=== PATIENT | female | born 1945 | race Caucasian/White ===

== ENCOUNTER 2016-04-16 10:07 | Outpatient (CLI) ==
--- NOTE | 2016-04-16 11:03 | CT ---
EXAM: CT chest without contrast HISTORY: Weight loss and chronic cough COMPARISON: Chest x-ray 06/30/2015 TECHNIQUE: Serial axial images of the chest were obtained from the lung apices to the upper abdomen without contrast. These were viewed in multiple planes. FINDINGS: The thyroid is normal. The visualized vessels are unremarkable without aneurysm or steno sis. The heart is normal in size without pericardial effusion. There are no pathologically enlarge d mediastinal or hilar lymph nodes. Normal calcified left hilar lymph node is present. There is no pneumothorax or pleural effusion. There is a 0.2 cm ground-glass nodule in the right lo wer lobe on image 44. There is an additional 0.3 cm ground-glass nodule on image 40 in the right lo wer lobe. There is no additional consolidation or nodule identified. The airways are patent. Limited views of the soft tissues in the upper abdomen demonstrate low attenuation 1.3 cm lesion in the posterior of the mid right renal pole measuring 10 HU. There is a small hiatal hernia. The oss eous structures are unremarkable. IMPRESSION: 1. Small ground-glass nodules in the right lower lobe are likely postinflammatory. 2. No acute consolidation or additional cardiopulmonary process. 3. Low attenuation lesion in the right kidney most consistent with a renal cyst.
--- NOTE | 2016-04-16 11:15 | CT ---
EXAM: CT examination of the abdomen pelvis without intravenous or oral contrast. Axial, sagittal, a nd coronal imaging. Comparison: None available. Reason for study: Weight loss, abdominal pain, and chronic cough. FINDINGS: Examination is somewhat limited by lack of intravenous and oral contrast. Within the visualized structures of the thorax. There is no pneumothorax, pleural effusion, or foca l consolidation. The heart is not enlarged. There is hyperdense material is seen within the left he art. There atherosclerotic disease is seen in the aorta and distal arterial vasculature. There is a 2 mm ground-glass nodule in the posterior right lower lobe best seen on lung windows axial image 6 . Please see the CT examination of the chest performed on the same day for further information conc erning the thorax. The liver, spleen, adrenal glands, pancreas, and gallbladder are unremarkable. There is a 1.5 cm superior pole right renal cyst (HU=11). Otherwise, both kidneys are unremarkable. Diverticular disease is seen throughout the rectosigmoid and descending colon. The appendix is nor mal in size and caliber without periappendiceal inflammatory change. There is a small fat containin g periumbilical hernia. There is degenerative disease seen within the thoracic and lumbosacral spine with vacuum disc phenom enon and anterior osteophytosis. There is sacralization of the fifth lumbar vertebrae with a grade 1 anterolisthesis of L4 on L5 and 2 mm of retrolithesis of L1 on L2. IMPRESSION: 1. 2 mm ground-glass nodule in the right lower lobe. Please see CT examination of the chest perfor med on the same day for further information. 2. Right renal cyst. 3. Diverticulosis. 4. Degenerative disease of the lumbosacral spine as described. 5. Atherosclerotic disease and senescent change.
== END 2016-04-16 10:08 | disposition home or self-care (01) ==
LOC: RAD 10:07
PROVIDERS: ATTEND Internal Medicine
DX: R10.9 Unspecified abdominal pain (principal); R05 Cough; R63.4 Abnormal weight loss

== ENCOUNTER 2016-05-13 10:11 | Outpatient (CLI) ==
[2016-05-13 13:08] LABS: BASOPHILS % (AUTO) 0.6 % (0.0-3.0); EOSINOPHILS % (AUTO) 0.6 % (0.0-7.0); HEMATOCRIT 39.1 % (37.0-47.0); HEMOGLOBIN 13.1 g/dl (12.0-16.0); IMMATURE GRANULOCYTE % (AUTO) 0.8 % (0.0-5.0); LYMPHOCYTES % (AUTO) 20.8 (10.0-50.0); MEAN CORPUSCULAR HEMOGLOBIN 29.6 pg (27.0-31.0); MEAN CORPUSCULAR HGB CONC 33.5 (31.8-35.4); MEAN CORPUSCULAR VOLUME 88.3 fl (81.0-99.0); MONOCYTES # (AUTO) 0.4 K/uL (0.4-2.0); MONOCYTES % (AUTO) 9.3 (0-10); NEUTROPHILS # (AUTO) 3.2 K/ul (2.0-6.9); NEUTROPHILS % (AUTO) 67.9; PLATELET COUNT 202 10^3/uL (140-440); RED BLOOD COUNT 4.43 10^6/ul (4.20-5.40); WHITE BLOOD COUNT 4.72 K/ul (4.6-10.2)
[2016-05-13 13:53] LABS: ALBUMIN 3.5 g/dL (3.4-5.0); ALBUMIN/GLOBULIN RATIO 1.09; ANION GAP 15.3; BILIRUBIN,TOTAL 0.64 mg/dL (0.00-1.20); BUN/CREATININE RATIO 9.09; CHOL/HDL RATIO 4.8 (4.5-5.5); CREATININE 0.77 mg/dL (0.60-1.30); POTASSIUM 3.3 mmol/L (3.5-5.10); TOTAL PROTEIN 6.7 g/dL (5.8-8.1)
== END 2016-05-13 10:12 | disposition home or self-care (01) ==
LOC: LAB 10:11
PROVIDERS: ATTEND General Practice
DX: E86.0 Dehydration (principal); R11.10 Vomiting, unspecified; Z79.899 Other long term (current) drug therapy
CPT/HCPCS: 36415; 80053; 80061; 82150; 83690; 85025

== ENCOUNTER 2016-06-09 11:25 | Outpatient (CLI) ==
[2016-06-09 12:42] LABS: BILIRUBIN,URINE Negative (NEGATIVE); KETONES,URINE Negative (NEGATIVE); LEUKOCYTE ESTERASE ,URINE Trace (NEGATIVE); NITRITE,URINE Negative (NEGATIVE); PROTEIN,URINE Negative (NEGATIVE); URINE, BLOOD Negative (NEGATIVE)
[2016-06-09 12:45] LABS: ADD URINE MICROSCOPIC YES
[2016-06-09 12:46] LABS: BACTERIA,URINE TRACE (NOT PRESENT)
== END 2016-06-09 11:26 | disposition home or self-care (01) ==
LOC: LAB 11:25
PROVIDERS: ATTEND General Practice
DX: R30.0 Dysuria (principal)
CPT/HCPCS: 81001

== ENCOUNTER 2016-06-30 10:45 | Outpatient (CLI) ==
[2016-06-30 11:26] LABS: BILIRUBIN,URINE Negative (NEGATIVE); KETONES,URINE Negative (NEGATIVE); LEUKOCYTE ESTERASE ,URINE 2+ (NEGATIVE); NITRITE,URINE Negative (NEGATIVE); PH,URINE 5.5 (5-9); PROTEIN,URINE Negative (NEGATIVE); URINE, BLOOD 2+ (NEGATIVE)
[2016-06-30 11:28] LABS: ADD URINE MICROSCOPIC YES
[2016-06-30 11:29] LABS: BACTERIA,URINE TRACE (NOT PRESENT)
== END 2016-06-30 10:46 | disposition home or self-care (01) ==
LOC: LAB 10:45
PROVIDERS: ATTEND General Practice
DX: R35.0 Frequency of micturition (principal)
CPT/HCPCS: 81001; 87086; 87186

== ENCOUNTER 2016-08-18 11:41 | Outpatient (CLI) ==
[2016-08-18 13:56] LABS: BASOPHILS % (AUTO) 0.5 % (0.0-3.0); EOSINOPHILS # (AUTO) 0.1 K/ul (0.0-0.7); EOSINOPHILS % (AUTO) 2.2 % (0.0-7.0); HEMATOCRIT 40.3 % (37.0-47.0); HEMOGLOBIN 13.4 g/dl (12.0-16.0); IMMATURE GRANULOCYTE % (AUTO) 0.5 % (0.0-5.0); LYMPHOCYTES # (AUTO) 1.8 K/uL (0.60-3.4); LYMPHOCYTES % (AUTO) 28.1 (10.0-50.0); MEAN CORPUSCULAR HEMOGLOBIN 29.1 pg (27.0-31.0); MEAN CORPUSCULAR HGB CONC 33.3 (31.8-35.4); MEAN CORPUSCULAR VOLUME 87.4 fl (81.0-99.0); MONOCYTES # (AUTO) 0.3 K/uL (0.4-2.0); MONOCYTES % (AUTO) 5.4 (0-10); NEUTROPHILS % (AUTO) 63.3; PLATELET COUNT 237 10^3/uL (140-440); RED BLOOD COUNT 4.61 10^6/ul (4.20-5.40); WHITE BLOOD COUNT 6.26 K/ul (4.6-10.2)
[2016-08-18 14:22] LABS: ALBUMIN 4.2 g/dL (3.4-5.0); ALBUMIN/GLOBULIN RATIO 1.31; ANION GAP 14.6; BILIRUBIN,TOTAL 0.59 mg/dL (0.00-1.20); BUN/CREATININE RATIO 26.43; CALCIUM 9.3 mg/dL (8.2-10.2); CREATININE 0.87 mg/dL (0.60-1.30); POTASSIUM 3.6 mmol/L (3.5-5.10); TOTAL PROTEIN 7.4 g/dL (5.8-8.1)
== END 2016-08-18 11:42 | disposition home or self-care (01) ==
LOC: LAB 11:41
PROVIDERS: ATTEND General Practice
DX: R11.0 Nausea (principal); R63.4 Abnormal weight loss; E11.9 Type 2 diabetes mellitus without complications
CPT/HCPCS: 36415; 80053; 83036; 85025

== ENCOUNTER 2016-08-20 13:04 | Outpatient (CLI) | payer OTHER ==
--- NOTE | 2016-08-20 14:39 | CT ---
EXAM: CT ABDOMEN AND PELVIS HISTORY: Weight loss, nausea. TECHNIQUE: CT abdomen and pelvis with and without intravenous contrast. Oral contrast was administ ered. Images were reconstructed using 5 mm section thickness. Reformations were prepared. 100 ml V isipaque 320 FINDINGS: Comparison is to 04/16/2016. Moderate fatty infiltration of the liver. Inhomogeneous enhancement of the spleen likely related to relative arterial phase technique of the exam. Gallbladder, pancreas and adrenal glands within nor mal limits. A few small renal cortical cysts are suggested. No hydronephrosis. There is mild athe rosclerotic disease of the aorta. Unremarkable stomach and appendix. Nonobstructive bowel gas pattern. There is mild sigmoid divertic ulosis. Uterus and urinary bladder are within normal limits. No ascites or obvious inflammatory in filtration of the abdominal fat. No abdominal wall hernia. There is severe degenerative disc disease of the spine and severe arthrop athy of the sacroiliac joints. Lung bases are free of infiltrate. No pneumoperitoneum. IMPRESSION: 1. Moderate fatty infiltration of the liver. 2. A few renal cortical cysts. 3. Mild atherosclerotic disease. 4. Mild sigmoid diverticulosis. 5. Severe degenerative changes of the spine and sacroiliac joints.
--- NOTE | 2016-08-20 15:32 | CT ---
EXAM: CT THORAX HISTORY: Weight loss, nausea. TECHNIQUE: CT thorax with and without intravenous contrast. 5-mm axial sections. Coronal and sagit meng re-formations. 100 ml Visipaque 320 COMPARISON: 04/16/2016 FINDINGS: Normal heart size. No pericardial effusion. Mild aortic atherosclerosis. A few small nonspecific mediastinal lymph nodes. Lungs are clear. No consolidations, vascular congestion, pleural fluid or pneumothorax. No suspici ous pulmonary nodules or opacities. Bones reveal moderate degenerative changes of the spine. IMPRESSION: 1. Lungs are clear. No suspicious pulmonary opacities or nodules. 2. Mediastinum within normal limits. A few nonspecific sub-centimeter lymph nodes are seen in this region.
== END 2016-08-20 13:05 | disposition home or self-care (01) ==
LOC: RAD 13:04
PROVIDERS: ATTEND Internal Medicine
DX: R63.4 Abnormal weight loss (principal); R11.0 Nausea; E11.9 Type 2 diabetes mellitus without complications; R10.9 Unspecified abdominal pain

== ENCOUNTER 2016-09-17 09:21 | Outpatient (CLI) | payer OTHER ==
--- NOTE | 2016-09-17 16:36 | NM ---
EXAM: Gastric emptying study HISTORY: Nausea COMPARISON: None of this type. PROCEDURE: The patient was administered 2.1 mCi of 99m technetium sulfur colloid mixed with 4 ounces of egg beaters, two pieces of toast with jelly and 6 ounces of water as a solid phase meal. Imagin g of the stomach was performed at one hour intervals for 3 hours in anterior and posterior projectio ns simultaneously. Subsequently time activity curves were calculated using anterior, posterior and geometric mean data. The gastric emptying half-time was determined. FINDINGS:The examination demonstrates a normal appearance of activity within the stomach. Sequentia l images demonstrate transit of activity from the stomach into the small bowel. The examination demo nstrates 46% emptying at 1 hour, 84% emptying at 2 hours and 96% emptying at 3 hours The gastric emp tying half-time is approximately 1 hour 10 minutes. IMPRESSION: 1.The gastric emptying half-time is approximately 1 hour 10 minutes (within normal limits). 2.Images of the activity in the stomach and small bowel are within normal limits.
== END 2016-09-17 09:22 | disposition home or self-care (01) ==
LOC: RAD 09:21
PROVIDERS: ATTEND General Practice
DX: R11.2 Nausea with vomiting, unspecified (principal); R63.4 Abnormal weight loss; R06.6 Hiccough

== ENCOUNTER 2017-03-07 12:18 | Outpatient (CLI) ==
--- NOTE | 2017-03-07 13:19 | DI ---
EXAM: Two views of the chest. History: Cough. Comparison: Chest radiograph 06/30/2015 Findings: Heart size is normal. No focal consolidation. No appreciable pleural fluid and no pneumo thorax. No acute osseous abnormalities. Calcified granulomas seen within the mediastinum. Mitral v alve calcifications. No acute osseous abnormalities. Scoliosis again noted. Impression: No acute cardiopulmonary process which
== END 2017-03-07 12:19 | disposition home or self-care (01) ==
LOC: RAD 12:18
PROVIDERS: ATTEND Internal Medicine
DX: R05 Cough (principal)

== ENCOUNTER 2017-03-12 12:36 | Outpatient (CLI) ==
--- NOTE | 2017-03-12 13:10 | CT ---
EXAM: CT head without contrast HISTORY: Ataxia and forgetfulness COMPARISON: CT head 06/23/2010 TECHNIQUE: Serial axial images of the brain were obtained from the skull base to the vertex without IV contrast. FINDINGS: The ventricles, cisterns and sulci are unchanged. The ventricles are prominent. The peck-w brooklynn matter junction is maintained. No midline shift or mass is identified. There is no abnormal in tra or extra-axial fluid collection. The paranasal sinuses demonstrate mild mucosal thickening. The mastoid air cells are clear. The osseous calvarium is intact. IMPRESSION: 1. No acute intracranial abnormality or hemorrhage. If further evaluation is clinically indicated, MRI may be obtained. 2. There is mild generalized volume loss and persistent prominence of the ventricles not significant ly changed since 2010. Temporal horns are not enlarged. 3. Mild paranasal sinus mucosal thickening.
== END 2017-03-12 12:37 | disposition home or self-care (01) ==
LOC: RAD 12:36
PROVIDERS: ATTEND Internal Medicine
DX: R27.0 Ataxia, unspecified (principal); R41.3 Other amnesia

== ENCOUNTER 2017-05-26 12:42 | Outpatient (CLI) ==
--- NOTE | 2017-05-26 13:19 | DI ---
EXAM: Chest two view, frontal and lateral views. HISTORY: Cough. COMPARISON: 03/07/2017, 10/24/2014, 03/05/2012. FINDINGS: The heart size is normal. There is no pulmonary vascular congestion. The lungs are clear save for calcified granulomatous changes. No pleural effusion or pneumothorax is seen. No acute os seous abnormality identified. Degenerative changes present in the spine and shoulders. Right convex curvature centered in the lower thoracic spine noted. Since the prior study, there has been no signi ficant interval change. IMPRESSION: No acute cardiopulmonary process.
== END 2017-05-26 12:43 | disposition home or self-care (01) ==
LOC: FCC-LAB 12:42
PROVIDERS: ATTEND General Practice
DX: R05 Cough (principal)
CPT/HCPCS: 87070

== ENCOUNTER 2017-06-02 15:21 | Outpatient (CLI) | END 2017-06-02 15:22 | disposition home or self-care (01) | LOC: FCC-LAB 15:21 | PROVIDERS: ATTEND General Practice | DX: E11.9 Type 2 diabetes mellitus without complications (principal); I10 Essential (primary) hypertension; R63.4 Abnormal weight loss; Z79.899 Other long term (current) drug therapy | CPT/HCPCS: 36415; 80053; 80061; 81001; 83036; 84443; 85025 ==

== ENCOUNTER 2017-06-24 10:01 | Outpatient (CLI) ==
--- NOTE | 2017-06-24 11:41 | CT ---
EXAM: CT abdomen pelvis with and without contrast HISTORY: Abnormal weight loss COMPARISON: 08/20/2016 TECHNIQUE: CT abdomen pelvis performed with and without intravenous contrast. Coronal and sagittal reformatted images obtained. FINDINGS: Lung bases clear. No free air. No acute abnormalities of the bones. Degenerative change s in the sacroiliac joints with partial fusion. Degenerative changes in the spine. Heart normal in size. Small focal fatty infiltration near the falciform ligament. Liver otherwise unremarkable. Ga llbladder unremarkable. Pancreas unremarkable. Granulomatous calcification in the spleen. Spleen o therwise unremarkable. Adrenals unremarkable. Small bilateral renal cysts. No hydronephrosis or ne phrolithiasis. Aorta normal in caliber. Mild to moderate atherosclerosis. Bladder unremarkable. U terus unremarkable. No lymphadenopathy or ascites. Small hiatal hernia with wall thickening gastroes ophageal junction region. No dilated loops small bowel. Appendix appears normal. Colonic diverticu losis. Minimal fat-containing umbilical hernia. IMPRESSION: 1. Small hiatal hernia with associated wall thickening near the gastroesophageal junction. Recommen d correlation with endoscopy 2. Colonic diverticulosis. 3. Atherosclerosis.
== END 2017-06-24 10:02 | disposition home or self-care (01) ==
LOC: RAD 10:01
PROVIDERS: ATTEND General Practice
DX: R11.0 Nausea (principal); R63.4 Abnormal weight loss

== ENCOUNTER 2017-07-04 14:33 | Outpatient (CLI) | END 2017-07-04 14:34 | disposition home or self-care (01) | LOC: FCC-LAB 14:33 | PROVIDERS: ATTEND General Practice | DX: I10 Essential (primary) hypertension (principal); R11.0 Nausea; R63.4 Abnormal weight loss | CPT/HCPCS: 36415; 84439; 84443; 84480; 84481 ==

== ENCOUNTER 2017-08-03 09:47 | Outpatient (CLI) | payer OTHER | END 2017-08-03 09:48 | disposition home or self-care (01) | LOC: LAB 09:47 | PROVIDERS: ATTEND Psychiatry & Neurology Psychiatry | DX: Z79.899 Other long term (current) drug therapy (principal) | CPT/HCPCS: 36415; 80164 ==

== ENCOUNTER 2017-08-23 09:22 | Outpatient (CLI) | payer OTHER | END 2017-08-23 09:23 | disposition home or self-care (01) | LOC: LAB 09:22 | PROVIDERS: ATTEND Psychiatry & Neurology Psychiatry | DX: Z79.899 Other long term (current) drug therapy (principal) | CPT/HCPCS: 36415; 80053; 80164; 85025; 85027 ==

== ENCOUNTER 2017-11-02 10:02 | Outpatient (CLI) | END 2017-11-02 10:03 | disposition home or self-care (01) | LOC: LAB 10:02 | PROVIDERS: ATTEND Psychiatry & Neurology Psychiatry | DX: Z79.899 Other long term (current) drug therapy (principal) | CPT/HCPCS: 36415; 80164; 83036 ==

== ENCOUNTER 2017-12-16 10:23 | Outpatient (CLI) | payer OTHER | END 2017-12-16 10:24 | disposition home or self-care (01) | LOC: FCC-LAB 10:23 | PROVIDERS: ATTEND General Practice | DX: E11.9 Type 2 diabetes mellitus without complications (principal); Z92.29 Personal history of other drug therapy; Z79.899 Other long term (current) drug therapy | CPT/HCPCS: 36415; 80053; 80061; 80164; 81001; 83036; 84443; 85025 ==

== ENCOUNTER 2017-12-26 11:36 | Outpatient (CLI) | END 2017-12-26 11:37 | disposition home or self-care (01) | LOC: FCC-LAB 11:36 | PROVIDERS: ATTEND General Practice | DX: R41.82 Altered mental status, unspecified (principal); E55.9 Vitamin D deficiency, unspecified; D64.9 Anemia, unspecified; R53.83 Other fatigue; Z79.899 Other long term (current) drug therapy | CPT/HCPCS: 36415; 80164; 82306 ==

== ENCOUNTER 2018-07-18 10:15 | Outpatient (CLI) | payer OTHER | END 2018-07-18 10:16 | disposition home or self-care (01) | LOC: RHC-LAB 10:15 | PROVIDERS: ATTEND General Practice | DX: Z00.00 Encounter for general adult medical examination without abnormal findings (principal) | CPT/HCPCS: 36415; 80053; 80061; 81001; 83735; 84443; 85025 ==